=== PATIENT | female | born 2000 | race Caucasian/White ===

== ENCOUNTER 2023-09-12 16:09 | Emergency (ER) | payer OTHER, SELFPAY ==
[2023-09-12 16:17] VITALS: BP 137/80; PULSE 76; RESP 17; TEMP 37.1; O2SAT 98; BMI 23.0
--- NOTE | 2023-09-12 16:34 | CTR_ITS ---
PROCEDURE INFORMATION: Exam: CT Head Without Contrast Exam date and time: 09/12/2023 5:16 PM Age: 22 years old Clinical indication: Injury or trauma; Other: Loc estrada fell on head; Blunt trauma (contusions or hematomas); Injury details: Loc estrada fell on her head last night and has had dizziness, headache, and nausea since. ; Additional info: Head injury TECHNIQUE: Imaging protocol: Computed tomography of the head without contrast. Radiation optimization: All CT scans at this facility use at least one of these dose optimization techniques: automated exposure control; mA and/or kV adjustment per patient size (includes targeted exams where dose is matched to clinical indication); or iterative reconstruction. COMPARISON: No relevant prior studies available. RADIATION DOSE METRICS: Total DLP (mGy-cm): 972.95 FINDINGS: Brain: No evidence for acute intracranial hemorrhage, mass effect, or acute infarct by CT. Normal contreras-white matter differentiation in the cerebral hemispheres. Cerebral ventricles: No ventriculomegaly. Paranasal sinuses: Visualized sinuses are unremarkable. No fluid levels. Mastoid air cells: Visualized mastoid air cells are well aerated. Bones: Unremarkable. No acute fracture. Soft tissues: Unremarkable. CT/CT head wo con* [id number] IMPRESSION: No acute intracranial abnormality.
--- NOTE | 2023-09-12 17:44 | ED_ITS ---
HPI - Head Injury General: Chief complaint: Head Injury Stated complaint: head pain, fall, nausea, dizzy Time Seen by Provider: 09/12/23 16:25 History of Present Illness: 22-year-old female was working at [employer] last night when a ceiling tile came loose and struck her on the top of the head. Patient's had some nausea, headache, and dizziness since then last night. Patient also reports some mild neck discomfort. Patient appears nontoxic. Patient moves all extremities well. Patient moves neck without difficulty. Associated symptoms: Reports nausea and neck pain Review of Systems General: Reports: 10 or more systems reviewed and unremarkable except in HPI and below GI: Reports: nausea Musc: Reports: neck pain Neuro: Reports: headache(s) and dizziness Physical Exam Const: COMMON NORMALS: alert HENMT: COMMON NORMALS: normocephalic, TM's normal bilaterally and Normal external nose present HEAD & SCALP: normocephalic NOSE: Normal external nose present TYMPANIC MEMBRANE: TM's normal bilaterally MOUTH: Normal oral and palatal mucosa present Neck/C-Spine: CERVICAL SPINE: No Cervical spine tenderness and Yes Paracervical muscle tenderness Resp: COMMON NORMALS: normal respiratory effort and clear to auscultation bilaterally AUSCULTATION: clear to auscultation bilaterally Cardio: COMMON NORMALS: regular rate and regular rhythm RATE: regular rate RHYTHM: regular rhythm GI: COMMON NORMALS: Soft to palpation PALPATION: Yes Soft to palpation Back/Pelvis: COMMON NORMALS: thoracic and lumbar spine normal to inspection Extremity: COMMON NORMALS: full ROM Neuro: SENSORIUM/ORIENTATION: Yes alert Skin: COMMON NORMALS: turgor normal GENERAL SKIN EXAM: turgor normal Course Vital Signs: Vital signs: Vital Signs Temperature 98.7 F 09/12/23 16:17 Pulse Rate 76 09/12/23 16:17 Respiratory Rate 17 09/12/23 16:17 Blood Pressure 137/80 09/12/23 16:17 Pulse Oximetry 98 09/12/23 16:17 Oxygen Delivery Me thod Room Air 09/12/23 16:17 MDM - Head Injury Medcial Decision Making 22-year-old female comes in today for complaints of head injury. Patient has had persistent nausea, headache, and dizziness since the injury last night. On exam patient has no focal neurodeficits. Pupils are equal and reactive. Posterior pharynx is normal. Patient has no cervical spine tenderness but paracervical muscle tenderness and tightness on the right side of the neck. Remainder of exam is normal. Blood pressure is slightly elevated at 137/80. Differential diagnosis concussion, skull fracture, intracranial bleeding, cervical strain. CT scan of the head noted no fracture or intracranial bleeding. Reviewed exam with patient recommended treatment for concussion and follow-up with primary care. Patient reported understanding and agreed to plan. Lab Data Radiology Impressions Head CT 09/12/23 16:34 IMPRESSION: No acute intracranial abnormality. All radiology interpretation(s) finalized by discharge Discharge Plan Discharge Patient Disposition: Home Clinical Impression: Concussion without loss of consciousness Qualifiers: Encounter type: initial encounter Qualified Code(s): S06.0X0A - Concussion without loss of consciousness, initial encounter Condition: Stable Discharge Orders: Discharge ED (Routine); Ordered 09/12/23 Ordered By: Quinten Cartagena Discharge Diet: Usual diet Discharge Activity: Increase activity as tolerated Patient Instructions: Concussion (ED) Activity Restrictions/Additional Instructions: Home and rest. Drink plenty water and fluids. Use acetaminophen and or ibuprofen for pain and discomfort. Follow-up with primary care in 3 to 4 days for recheck. Return to ED for new concerns. Stand Alone Forms: Work/School Release Coding Level of Care Code ED Telemarketing Fundraiser for Darren Wilkinson
[2023-09-12 18:41] VITALS: BP 127/86; PULSE 72; RESP 16; TEMP 37.1; O2SAT 99
== END 2023-09-12 18:39 | disposition home or self-care (01) ==
PROVIDERS: Emergency Provider Nurse Practitioner Family
DX: S06.0X0A Concussion without loss of consciousness, initial encounter (principal); W20.8XXA Other cause of strike by thrown, projected or falling object, initial encounter; Y92.511 Restaurant or cafe as the place of occurrence of the external cause; Y99.0 Civilian activity done for income or pay
CPT/HCPCS: 70450; 99284

== ENCOUNTER 2023-09-15 18:07 | Emergency (ER) | payer OTHER, SELFPAY ==
[2023-09-15 18:25] VITALS: BP 126/81; PULSE 74; RESP 14; TEMP 37.1; O2SAT 100
--- NOTE | 2023-09-15 19:02 | W.ED.HA ---
Documented by User: [email or web address] Nuñez 09/15/23 19:08 HPI - Headache General: Chief Complaint: Headache Stated Complaint: headache, Dizzy Time Seen by Provider: 09/15/23 18:24 Source: patient Mode of arrival: ambulatory Limitations: no limitations History of Present Illness: Patient is a 22-year-old female presenting to the emergency department complaining of headache for the past few days. Initially she was seen in the emergency department for head injury suffered after a panel struck her on the back of the head at work, where she had a normal head CT at that time. She returns today stating that she primarily needs a note stating that she is cleared from intracranial injury, however does note that her headache has persisted. However she has only been taking Tylenol infrequently, and she is not reporting any other symptoms at this time. Additionally there are no new neurological deficits to report. MD elicited complaint: headache Onset (ago): day(s) Context: recent head injury Associated symptoms: Reports no associated symptoms; Deny chest pain, fever(s), lightheadedness, nausea, rash or vomiting Treatments prior to arrival: acetaminophen Review of Systems General: Reports: 10 or more systems reviewed and unremarkable except in HPI and below Const: Denies: fever(s), chills or fatigue Eyes: Denies: change in vision ENMT: Denies: throat pain, ear or mastoid pain or nasal discharge Card: Denies: chest pain, palpitations, swelling of feet/ankles or lightheadedness Resp: Denies: dyspnea, productive cough or wheezing GI: Denies: abdominal pain, nausea, vomiting, diarrhea or constipation : Denies: flank pain, difficulty voiding, dysuria or urinary frequency Musc: Denies: neck pain, back pain or joint pain Skin/Breast: Denies: rash Neuro: Reports: headache(s); Denies: numbness in extremities, weakness in extremities, sensory changes, difficulty walking, Slurred speech present or seizure-like activity Physical Exam Const: COMMON NORMALS: no acute distress, patient oriented x3, no limitations, healthy appearing, alert and well nourished GENERAL APPEARANCE: cooperative and comfortable ORIENTATION/CONSCIOUSNESS: Yes awake HENMT: COMMON NORMALS: normocephalic, atraumatic and Normal external nose present HEAD & SCALP: normocephalic, atraumatic and scalp tenderness; no Arguello's sign, no contusion, no hematoma, no laceration, no palpable skull fracture and no raccoon eyes FACE & SINUS: normal facial exam and face symmetric NOSE: Normal external nose present and Normal septum present Eye: COMMON NORMALS: Equal, round and reactive pupils present, EOMs intact bilaterally and conjunctivae normal GENERAL EYE: appearance normal, both eyes and all related structures VISUAL ACUITY: Yes acuity normal CONJUNCTIVA: Yes conjunctivae normal PUPIL: Yes Equal, round and reactive pupils present Neck/C-Spine: COMMON NORMALS: full ROM and supple CERVICAL SPINE: Yes cervical ROM normal Resp: COMMON NORMALS: normal respiratory effort, No use of accessory muscles and clear to auscultation bilaterally AUSCULTATION: clear to auscultation bilaterally Cardio: COMMON NORMALS: regular rate and regular rhythm RATE: regular rate RHYTHM: regular rhythm Extremity: COMMON NORMALS: normal to inspection and full ROM Neuro: COMMON NORMALS: patient oriented x3, CN's II-XII intact bilaterally, moves all extremities, no focal motor deficits, no sensory deficits noted and gait normal SENSORIUM/ORIENTATION: Yes alert COORDINATION/BALANCE: [id number] test normal SPEECH: speech normal GAIT: Yes Normal gait present MOTOR EXAM: 5/5 motor strength present throughout COORDINATION: [id number] test normal Psych: COMMON NORMALS: mental status grossly normal Skin: COMMON NORMALS: no rashes or lesions noted GENERAL SKIN EXAM: no rashes or lesions noted Course Vital Signs: Vital signs: Vital Signs Temperature 98.7 F 09/15/23 18:25 Pulse Rate 74 09/15/23 18:25 Respiratory Rate 14 09/15/23 18:25 Blood Pressure 126/81 09/15/23 18:25 Pulse Oximetry 100 09/15/23 18:25 Oxygen Delivery Me thod Room Air 09/15/23 18:25 MDM - Headache Medical Decision Making Patient presented stating that she need documentation that she is clear from intracranial injury, as she suffered this few days ago while at work. I did perform a thorough neurological evaluation, of which was completely normal. Her vitals were normal on arrival and I have no concern for latent injury of the head at this time. After reviewing her imaging from initial presentation on the , CT did not demonstrate any acute intracranial abnormality. All of this was documented for the patient, and I did inform her of pain control options going forward, as she was noting some recurrence of pain. Likely she is dealing with a postconcussive syndrome, and strict return precautions were given to the patient. Care of this patient was discussed with supervising ED physician, Dr. Kent, who agrees with disposition. No radiology studies performed this visit Discharge Plan Discharge Patient Disposition: Home Clinical Impression: Concussion without loss of consciousness Qualifiers: Encounter type: initial encounter Qualified Code(s): S06.0X0A - Concussion without loss of consciousness, initial encounter Condition: Stable Discharge Orders: Discharge ED (Routine); Ordered 09/15/23 Ordered By: Kashmir Sebastian Discharge Diet: Usual diet Discharge Activity: Increase activity as tolerated Patient Instructions: Post Concussion Syndrome (ED) Activity Restrictions/Additional Instructions: Your neurological examination today was normal, as well as head CT from couple days ago. Postconcussive syndrome as discussed, please monitor for any new or worsening symptoms you may have. You may alternate Tylenol and ibuprofen for any pain as discussed. Max of 4 g of Tylenol and max of 3200 mg of ibuprofen per day. Alternate these as discussed. Follow-up with primary care as needed. Plenty fluids. Coding Level of Care Code ED Senior Environmental Engineer for [employer] Documented by User: Aj Lyon DO 09/16/23 05:17 HPI - Headache General: Chief Complaint: Headache Stated Complaint: headache, Dizzy Time Seen by Provider: 09/15/23 18:24 Course Vital Signs: Vital signs: Vital Signs Temperature 98.7 F 09/15/23 18:25 Pulse Rate 74 09/15/23 18:25 Respiratory Rate 14 09/15/23 18:25 Blood Pressure 126/81 09/15/23 18:25 Pulse Oximetry 100 09/15/23 18:25 Oxygen Delivery Me thod Room Air 09/15/23 18:25 MDM - Headache Medical Decision Making Patient presented stating that she need documentation that she is clear from intracranial injury, as she suffered this few days ago while at work. I did perform a thorough neurological evaluation, of which was completely normal. Her vitals were normal on arrival and I have no concern for latent injury of the head at this time. After reviewing her imaging from initial presentation on the , CT did not demonstrate any acute intracranial abnormality. All of this was documented for the patient, and I did inform her of pain control options going forward, as she was noting some recurrence of pain. Likely she is dealing with a postconcussive syndrome, and strict return precautions were given to the patient. Care of this patient was discussed with supervising ED physician, Dr. Kent, who agrees with disposition. Chart reviewed Discharge Plan Discharge Patient Disposition: Home Clinical Impression: Concussion without loss of consciousness Qualifiers: Encounter type: initial encounter Qualified Code(s): S06.0X0A - Concussion without loss of consciousness, initial encounter Condition: Stable Discharge Orders: Discharge ED (Routine); Ordered 09/15/23 Ordered By: Kashmir Sebastian Discharge Diet: Usual diet Discharge Activity: Increase activity as tolerated Patient Instructions: Post Concussion Syndrome (ED) Activity Restrictions/Additional Instructions: Your neurological examination today was normal, as well as head CT from couple days ago. Postconcussive syndrome as discussed, please monitor for any new or worsening symptoms you may have. You may alternate Tylenol and ibuprofen for any pain as discussed. Max of 4 g of Tylenol and max of 3200 mg of ibuprofen per day. Alternate these as discussed. Follow-up with primary care as needed. Plenty fluids. Coding Level of Care Code ED Senior Environmental Engineer for Darren Wilkinson
== END 2023-09-15 18:48 | disposition home or self-care (01) ==
PROVIDERS: Emergency Provider Physician Assistant
DX: S06.0X0A Concussion without loss of consciousness, initial encounter (principal); W22.8XXA Striking against or struck by other objects, initial encounter; Y99.0 Civilian activity done for income or pay
CPT/HCPCS: 99281